=== PATIENT | male | born 1970 | race Caucasian/White ===

== ENCOUNTER 2019-11-27 18:39 | Emergency (ER) | payer BC ==
[~2019-11-27] VITALS: Ht 175.3 cm; Wt 74.8 kg
[2019-11-27 18:59] VITALS: BP 145/79
--- NOTE | 2019-11-27 19:10 | NUR ---
ED Nurse Note: Pt ambulated into Ed from home [place] chest pain 4/10, swelling and soreness at the base of the neck, pain in the left arm, abdominal pain, and pain in left calf. Pt reports that symptoms began last week but pain began yesterday. ERMD at bedside. Pt resting comfortably in bed. VSS, no s/s of distress noted.
--- NOTE | 2019-11-27 19:15 | NUR ---
ED Nurse Note: EKG performed by anesthesia tech
--- NOTE | 2019-11-27 19:17 | NUR ---
ED Nurse Note: Xray at bedside
--- NOTE | 2019-11-27 19:20 | NUR ---
ED Nurse Note: All blood work drawn and sent to lab
--- NOTE | 2019-11-27 19:22 | Emergency Room Report ---
History of Present Illness General Chief Complaint: Chest Pain Source: Patient Present Illness HPI Patient presents with left-sided chest pain. This happened yesterday. 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 It was more pressure. Had difficulty quantifying it. It went away spontaneously. Today he started feeling left-sided arm pain. Usually when he feels this type of pain is related to his working out. He is not worked out for a while. Patient took Cialis yesterday. The patient has history of irritable bowel syndrome and anxiety. He fasted 8 hours before doing a.m. labs this morning. He is has increased stress at this time. He is taking medication for this anxiety. In addition his irritable bowel syndrome is somewhat worsened. Used to take famotidine but is not taking it at this time. He denies any vomiting or diarrhea. He feels some fullness in his neck in addition. Risk factors for cardiac disease: Family history and possible borderline hypertension. Patient does not smoke and his cholesterol is normal. No diabetes. No fevers, chills, sore throat per se, palpitations, diarrhea, dysuria, abdominal pain, shortness of breath, joint pain, rashes, visual changes, dizziness, headache. 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 Nursing Documentation: PMH: Agreed; PSxH: Agreed Nursing Documentation-PM Past Medical History: No History, Except For Hx Gastrointestinal Problems: Yes - IBS Review of Systems All Other Systems: negative except mentioned in HPI Physical Exam Vital Signs Date Time Temp Pulse Resp B/P (MAP) Pulse Ox O2 Delivery O2 Flow Rate FiO2 11/27/19 18:48 98.6 92 17 151/77 (101) 99 Room Air Sp02 EP Interpretation: reviewed, normal General Appearance: well appearing, no apparent distress, GCS 15 Head: normocephalic Eyes: bilateral eye normal inspection, bilateral eye PERRL, bilateral eye EOMI ENT: normal pharynx, moist mucus membranes Neck: full range of motion, supple, other - subjective "strange" feeling anterior neck Respiratory: chest non-tender, lungs clear, normal breath sounds Cardiovascular #1: regular rate, rhythm Cardiovascular #2: 2+ radial (R) Gastrointestinal: normal inspection, normal bowel sounds, non tender, no mass, non-distended Musculoskeletal: back normal, normal range of motion - Also of L arm, gait/ station normal Neurologic: alert, oriented x3, grossly normal Psychiatric: anxious - but calm Skin: no rash, warm/dry Medical Decision Making Diagnostic Impression: Primary Impression: Chest pain Qualified Codes: R07.9 - Chest pain, unspecified ER Course Patient presents with chest pain yesterday and left arm pain today. Risk factors are family history. Differential includes acute myocardial infarction, acute coronary syndrome, reflux esophagitis, gastritis, muscle strain, stress amongst others. Evaluation with EKG, chest x-ray and labs. Patient treated with Pepcid. Patient placed on a phototypesetting equipment monitor. EKG normal. Chest x-ray normal. Labs unremarkable with negative troponin. Patient improved with Pepcid. Discussed findings and low risk for outpatient observation. Discussed need for follow-up with his private doctor and also suggested cardiac evaluation although suspect GI origin of pain. Stress is a factor. However stress is not the etiology of the discomfort. No acute emergency and risk factor for cardiac event extremely low. Patient stable for outpatient observation and treatment. Laboratory Tests Test 11/27/19 19:14 White Blood Count 6.1 K/UL (4.8-10.8) Red Blood Count 4.93 M/UL (4.70-6.10) Hemoglobin 14.1 G/DL (14.2-18.0) L Hematocrit 42.8 % (42.0-52.0) Mean Corpuscular Volume 87 FL (80-99) Mean Corpuscular Hemoglobin 28.5 PG (27.0-31.0) Mean Corpuscular Hemoglobin Concent 32.9 G/DL (32.0-36.0) Red Cell Distribution Width 13.4 % (11.6-14.8) Platelet Count 272 K/UL (150-450) Mean Platelet Volume 7.9 FL (6.5-10.1) Neutrophils (%) (Auto) 47.4 % (45.0-75.0) Lymphocytes (%) (Auto) 40.6 % (20.0-45.0) Monocytes (%) (Auto) 8.6 % (1.0-10.0) Eosinophils (%) (Auto) 2.3 % (0.0-3.0) Basophils (%) (Auto) 1.2 % (0.0-2.0) Prothrombin Time 10.7 SEC (9.30-11.50) Prothrombin Time INR 1.0 (0.9-1.1) Activated Partial Thromboplast Time 26 SEC (23-33) Sodium Level 141 MMOL/L (136-145) Potassium Level 3.8 MMOL/L (3.5-5.1) Chloride Level 101 MMOL/L (98-107) Carbon Dioxide Level 27 MMOL/L (21-32) Anion Gap 13 mmol/L (5-15) Blood Urea Nitrogen 21 mg/dL (7-18) H Creatinine 1.1 MG/DL (0.55-1.30) Estimate Glomerular Filtration Rate > 60 mL/min (>60) Glucose Level 96 MG/DL (74-106) Calcium Level 9.5 MG/DL (8.5-10.1) Total Bilirubin 0.4 MG/DL (0.2-1.0) Aspartate Amino Transferase (AST) 34 U/L (15-37) Alanine Aminotransferase (ALT) 79 U/L (12-78) H Alkaline Phosphatase 61 U/L (46-116) Total Creatine Kinase 272 U/L (26-308) Troponin I 0.000 ng/mL (0.000-0.056) Total Protein 8.1 G/DL (6.4-8.2) Albumin 4.1 G/DL (3.4-5.0) Globulin 4.0 g/dL Albumin/Globulin Ratio 1.0 (1.0-2.7) Lipase 75 U/L (73-393) EKG Diagnostic Results Rate: normal Rhythm: NSR ST Segments: no acute changes Rhythm Strip Diag. Results EP Interpretation: yes Rhythm: NSR, no PVC's, no ectopy Chest X-Ray Diagnostic Results Chest X-Ray Diagnostic Results : Chest X-Ray Ordered: Yes # of Views/Limited/Complete: 1 View Indication: Chest Pain Interpretation: no consolidation, no effusion, no pneumothorax Impression: No acute disease Electronically Signed by: Electronically signed by Navdeep Jara MD Last Vital Signs Date Time Temp Pulse Resp B/P (MAP) Pulse Ox O2 Delivery O2 Flow Rate FiO2 11/27/19 20:45 98.6 76 16 126/88 99 Room Air Status: improved Disposition: HOME, SELF-CARE Condition: Improved Scripts Famotidine* (Pepcid 20mg tablet*) 20 Mg Tablet 20 MG ORAL DAILY, #30 TAB 0 Refills Prov: Navdeep Jara MD 11/27/19 Navdeep Jara MD Nov 27, 2019 19:22
--- NOTE | 2019-11-27 19:25 | Diagnostic Imaging Report ---
History: CP Exam: XR CXR 1 VIEW Comparison: None available FINDINGS: The lungs are clear. The cardiac and mediastinal contours are within limits. The visualized osseous structures appear within limits. IMPRESSION: No evidence of acute disease.
[2019-11-27 19:31] LABS: BASOPHILS % (AUTO) 1.2 % (0.0-2.0); EOSINOPHILS % (AUTO) 2.3 % (0.0-3.0); HEMATOCRIT 42.8 % (42.0-52.0); HEMOGLOBIN 14.1 G/DL (14.2-18.0); LYMPHOCYTES % (AUTO) 40.6 % (20.0-45.0); MEAN CORPUSCULAR VOLUME 87 FL (80-99); MONOCYTES % (AUTO) 8.6 % (1.0-10.0); NEUTROPHILS % (AUTO) 47.4 % (45.0-75.0); PLATELET COUNT 272 K/UL (150-450); RED BLOOD COUNT 4.93 M/UL (4.70-6.10); RED CELL DISTRIBUTION WIDTH 13.4 % (11.6-14.8); WHITE BLOOD COUNT 6.1 K/UL (4.8-10.8)
--- NOTE | 2019-11-27 19:40 | NUR ---
ED Nurse Note: All medications administered; pt tolerated well. no s/s of distress noted.
[2019-11-27 19:41] LABS: ANION GAP 13 mmol/L (5-15); BLOOD UREA NITROGEN 21 mg/dL (7-18); CALCIUM 9.5 MG/DL (8.5-10.1); CARBON DIOXIDE 27 MMOL/L (21-32); CHLORIDE 101 MMOL/L (98-107); CREATININE 1.1 MG/DL (0.55-1.30); POTASSIUM 3.8 MMOL/L (3.5-5.1); SODIUM 141 MMOL/L (136-145)
[2019-11-27 19:46] LABS: ALANINE AMINOTRANSFERASE 79 U/L (12-78); ALBUMIN 4.1 G/DL (3.4-5.0); ALKALINE PHOSPHATASE 61 U/L (46-116); ASPARTATE AMINO TRANSFERASE 34 U/L (15-37); BILIRUBIN,TOTAL 0.4 MG/DL (0.2-1.0); CREATINE KINASE 272 U/L (26-308)
[2019-11-27] MEDS ORDERED: FAMOTIDINE20 MG ORAL (20:18)
[2019-11-27 20:45] VITALS: BP 126/88
--- NOTE | 2019-11-27 20:45 | NUR ---
ER DISCHARGE NOTE: Patient is cleared to be discharged home per ERMD, pt is aox4, on room air, with stable vital signs. pt was given dc and prescription instructions, pt was able to verbalize understanding, pt id band and iv site removed without complications. pt is able to ambulate with steady gait. pt took all belongings.
== END 2019-11-27 20:45 | disposition home or self-care (01) ==
LOC: EMR 19:15
DX: R07.9 Chest pain, unspecified (principal); K58.9 Irritable bowel syndrome, unspecified; F41.9 Anxiety disorder, unspecified; Z88.0 Allergy status to penicillin; Z79.899 Other long term (current) drug therapy
CPT/HCPCS: 36415; 71045; 80053; 82550; 83690; 84484; 85025; 85610; 85730; 93005; 96374; 99284; S0028